=== PATIENT | female | born 1940 | race Caucasian/White ===

== ENCOUNTER 2020-05-24 09:12 | Inpatient (IN) | payer BC, OTHER ==
--- NOTE | 2020-05-24 09:32 | BHS.RME ---
Substance Use & Tx History - Substance Use History Alcohol Substance amount: 1 quart emi Frequency of use: Daily Substance route: Oral Date of Last Use: 05/23/20 Nicotine Substance amount: former smoker Physical/Psych/Mental Status - Behavior General Behavior: Increased activity (restlessness, agitation) Eye Contact: Normal - Cooperativeness Cooperativeness: Cooperative - Thinking Thought Processes: Tight, Logical, Goal Directed - Physical Health Problems Is patient presently having any pain?: No Does patient presently have any injuries (include location): No Does patient currently have a fever: No Is patient : No CIWA Nausea/Vomitin Muscle Tremors: 6 Anxiety: 3 Agitation: 4-Moderately Restless Paroxysmal Sweats: 4-Forehead w/Sweat Beads Orientation: 0-Oriented Tacttile Disturbances: 0-None Auditory Disturbances: 0-None Visual Disturbances: 0-None Headache: 2-Mild CIWA-Ar Total Score: 21
[2020-05-24 09:38] VITALS: BMI 21.9
--- NOTE | 2020-05-24 09:39 | HP ---
CIWA Score Nausea/Vomitin Muscle Tremors: 6 Anxiety: 3 Agitation: 4-Moderately Restless Paroxysmal Sweats: 4-Forehead w/Sweat Beads Orientation: 0-Oriented Tacttile Disturbances: 0-None Auditory Disturbances: 0-None Visual Disturbances: 0-None Headache: 2-Mild CIWA-Ar Total Score: 21 - Admission Criteria OASAS Guidelines: Admission for Medically Managed Detox: Requires at least one of the followin. CIWA greater than 12 2. Seizures within the past 24 hours 3. Delirium tremens within the past 24 hours 4. Hallucinations within the past 24 hours 5. Acute intervention needed for co occurring medical disorder 6. Acute intervention needed for co occurring psychiatric disorder 7. Severe withdrawal that cannot be handled at a lower level of care (continued vomiting, continued diarrhea, abnormal vital signs) requiring intravenous medication and/or fluids 8. Admitting History and Physical - Admission Chief Complaint: Ms. Magana is a 80 yo woman who presents to [facility] requesting admission for alcohol detox. History of Present Illness: Ms. Magana is a 80 yo woman who presents to [facility] requesting admission for alcohol detox. This is her first time here. PMH: HTN PSH: right ankle fracture Psych: anxiety not seen by Psych, PCP gave Lexapro SOC: lives in [place], [facility] Legal: none Substance Use History Alcohol Substance amount: 1 quart vodka Frequency of use: Daily Substance route: Oral Date of Last Use: 05/23/20 First use in her 20's, but heavily past 3 weeks. No seizures No blackouts Admits to eye investment underwriter Nicotine Substance amount: former smoker No Methadone or Suboxone. : Sylvia Magana Date: 1940 Address: [address] [place] [address] Sex: Female Rx Written Rx Dispensed Drug Quantity Days Supply Prescriber Name 05/02/2020 05/02/2020 diazepam 2 mg tablet 5 5 Evens Martinez MD 04/23/2020 04/27/2020 lorazepam 0.5 mg tablet 15 15 Evens Martinez MD 04/11/2020 04/11/2020 lorazepam 0.5 mg tablet 5 5 Evens Martinez MD Date: 1940 Address: [address], [place] [address] Sex: Female Rx Written Rx Dispensed Drug Quantity Days Supply Prescriber Name 04/16/2020 04/16/2020 lorazepam 0.5 mg tablet 10 10 Evens Martinez MD History Source: Patient Limitations to Obtaining History: No Limitations Admission ROS [facility] Allergies/Adverse Reactions: Allergies Allergy/AdvReac Type Severity Reaction Status Date / Time No Known Allergies Allergy Verified 05/24/20 09:48 Exam Limitations: No Limitations - Ebola screening Have you traveled outside of the country in the last 21 days: No Have you been sick,other than usual withdrawal symptoms: No Do you have a fever: No - Review of Systems Constitutional: Loss of Appetite, Changes in sleep (trouble falling asleep), Unintentional Wgt. Loss (lost 3 lbs) EENT: reports: Blurred Vision (glasses to read, has with her) Respiratory: reports: No Symptoms reported Cardiac: reports: No Symptoms Reported GI: reports: Nausea : reports: No Symptoms Reported Musculoskeletal: reports: Other (foot pain, hx of arthritis) Integumentary: reports: No Symptoms Reported Neuro: reports: No Symptoms reported Endocrine: reports: No Symptoms Reported Hematology: reports: No Symptoms Reported Psychiatric: reports: Anxious Patient History - Smoking Cessation Smoking history: Former smoker Have you smoked in the past 12 months: No Initiated information on smoking cessation: No Admission Physical Exam [facility] - Physical General Appearance: Yes: No Apparent Distress, Nourished, Tremorous, Anxious HEENTM: Yes: EOMI, Hearing grossly Normal, Normocephalic, Normal Voice Respiratory: Yes: Lungs Clear, No Respiratory Distress, No Accessory Muscle Use Neck: Yes: Within Normal Limits, Supple Breast: Yes: Breast Exam Deferred Cardiology: Yes: Regular Rhythm, Regular Rate Abdominal: Yes: Normal Bowel Sounds, Non Tender, Flat, Soft Genitourinary: Yes: Other (deferred) Back: Yes: Normal Inspection Musculoskeletal: Yes: Gait Steady Extremities: Yes: Normal Inspection, Non-Tender Neurological: Yes: Alert, Normal Mood/Affect, Normal Response Integumentary: Yes: Normal Color, Dry, Warm - Diagnostic (1) Alcohol dependence with withdrawal, uncomplicated Current Visit: Yes Status: Acute (2) HTN (hypertension) Current Visit: Yes Status: Acute Cleared for Admission [facility] - Detox or Rehab [facility] Level of Care: Medically Managed Detox Regimen/Protocol: Librium Breathalyzer - Breathalyzer Breathalyzer: 0 Urine Drug Screen - Test Device Lot number: [id number] Expiration date: 12/27/21 - Control Is test valid?: Yes - Results Drug screen NEGATIVE: No Urine drug screen results: BZO-Benzodiazepines Inpatient Rehab Admission - Rehab Decision to Admit Inpatient rehab admission?: No
[2020-05-24] MEDS ORDERED: MENTHOL/PHENOL 1 EACH UD MM PRN (09:56)
[2020-05-24] MEDS ORDERED: MAG HYDROX/AL HYDROX/SIMETH 30 ML UNIT-DOSE CUP PO PRN (09:56)
[2020-05-24] MEDS ORDERED: ACETAMINOPHEN 325 MG TABLET (FP) PO PRN ×2 (09:56)
[2020-05-24] MEDS ORDERED: chlordiazePOXIDE HCL 25 MG CAPSULE PO PRN (09:56)
[2020-05-24] MEDS ORDERED: ONDANSETRON *ODT* 4 MG TABLET SL PRN (09:56)
[2020-05-24] MEDS ORDERED: MAGNESIUM CITRATE 300 ML BOTTLE PO PRN (09:56)
[2020-05-24] MEDS ORDERED: BISMUTH SUBSALICYLATE 524 MG/30 ML UD PO PRN (09:56)
[2020-05-24] MEDS ORDERED: IBUPROFEN 400 MG TABLET (FP) PO PRN (09:56)
[2020-05-24] MEDS ORDERED: MAGNESIUM HYDROX 2400MG/30ML ORAL SUSPENSION 30 ML CUP PO PRN (09:56)
[2020-05-24] MEDS ORDERED: METHOCARBAMOL 500 MG TABLET PO PRN (09:56)
[2020-05-24] MEDS ORDERED: hydrOXYzine PAMOATE 25 MG CAPSULE (FP) PO SCH (10:00)
[2020-05-24] MEDS: chlordiazePOXIDE HCL 25 MG CAPSULE PO SCH ×3 (11:21→22:04)
[2020-05-24] MEDS: amLODIPine BESYLATE 10 MG TABLET (FP) PO SCH (11:22)
[2020-05-24] MEDS: PRENATAL VITAMINS W/ FOLIC ACID TABLET (FP) PO SCH (11:50)
[2020-05-24] MEDS ORDERED: hydrOXYzine PAMOATE 25 MG CAPSULE (FP) PO PRN (12:18)
--- NOTE | 2020-05-24 14:35 | CONSULT ---
[facility] Psychiatric Consult - Data Date of interview: 05/24/20 Admission source: [facility] Identifying data: Ms Magana is a 80 years old single female, retired on social security, domiciled seeking detox treatment for alcohol Substance Abuse History: Reports history of alcohol use. Refer to addiction counselor's summary for further information Medical History: Significant for hypertension and history of fracture of right ankle in 2018. Psychiatric History: This is patient's first admission to this facility. She reports no previous psychiatric contact. However, for the past 2 months, reports that she has been prescribed Lexapro 5 mg/day and Valium 2 mg/hs by her primary care provider for anxiety. Denies previous psychiatric hospitalization or suicidal attempt. At present, reports feeling very anxious and sleeping poorly Physical/Sexual Abuse/Trauma History: Denies history of abuse as a child or DV relationship as an adult Mental Status Exam - Mental Status Exam Alert and Oriented to: Time, Place, Person Cognitive Function: Fair Patient Appearance: Well Groomed Mood: Anxious Affect: Appropriate Patient Behavior: Cooperative Speech Pattern: Clear Voice Loudness: Normal Thought Process: Intact, Goal Oriented Thought Disorder: Not Present Hallucinations: Denies Suicidal Ideation: Denies Homicidal Ideation: Denies Insight/Judgement: Poor Sleep: Poorly Appetite: Poor Muscle strength/Tone: Normal Gait/Station: Normal Psychiatric Findings - Problem List ([place] 1, 2,3) (1) Anxiety disorder Current Visit: Yes Status: Chronic (2) Alcohol-induced anxiety disorder Current Visit: Yes Status: Acute (3) Alcohol-induced sleep disorder Current Visit: Yes Status: Acute (4) Alcohol dependence with withdrawal, uncomplicated Current Visit: Yes Status: Acute (5) HTN (hypertension) Current Visit: Yes Status: Chronic - Initial Treatment Plan Initial Treatment Plan: 1) Continue Lexapro 5 mg po daily. 2) Start Vistaril 50 mg po Q 4hrs prn for anxiety and Belsomra 10 mg po HS prn for insomnia. 3) Continue inpatient detoxification
[2020-05-24 14:47] LABS: HEMATOCRIT 37.8 % (32.4-45.2); HEMOGLOBIN 12.9 GM/dL (10.7-15.3); MCH 33.2 pg (25.7-33.7); MCHC 34.2 g/dl (32.0-36.0); MEAN CELL VOLUME 96.9 fl (80-96); MEAN PLT VOLUME 7.2 fl (7.5-11.1); PLATELET COUNT 371 K/MM3 (134-434); RDW 13.2 % (11.6-15.6); WHITE BLOOD COUNT 9.4 K/mm3 (4.0-10.0)
[2020-05-24 15:08] LABS: ALBUMIN 4.4 g/dl (3.4-5.0); BILIRUBIN,TOTAL 0.9 mg/dL (0.2-1); CALCIUM 9.6 mg/dL (8.5-10.1); CREATININE 0.7 mg/dL (0.55-1.3); POTASSIUM 4.1 mmol/L (3.5-5.1); TOT PROT 7.1 g/dl (6.4-8.2)
[2020-05-24] MEDS: hydrOXYzine PAMOATE 50 MG CAPSULE (FP) PO PRN (15:17)
[2020-05-24] MEDS ORDERED: MELATONIN 5 MG TABLETS PO SCH (22:00)
[2020-05-24] MEDS: SUVOREXANT 10 MG TABLET PO PRN (22:03)
[2020-05-24] MEDS: THIAMINE HCL 100 MG TABLET (FP) PO SCH (22:04)
[2020-05-25] MEDS: chlordiazePOXIDE HCL 25 MG CAPSULE PO SCH ×4 (06:40→22:08)
[2020-05-25] MEDS: PRENATAL VITAMINS W/ FOLIC ACID TABLET (FP) PO SCH (11:26)
[2020-05-25] MEDS: ESCITALOPRAM OXALATE 10 MG TABLET PO SCH (11:26)
[2020-05-25] MEDS: amLODIPine BESYLATE 10 MG TABLET (FP) PO SCH (11:26)
--- NOTE | 2020-05-25 12:28 | PN ---
S CIWA - CIWA Score Nausea/Vomitin-No Nausea/No Vomiting Muscle Tremors: 3 Anxiety: 3 Agitation: 3 Paroxysmal Sweats: 3 Orientation: 0-Oriented Tacttile Disturbances: 0-None Auditory Disturbances: 0-None Visual Disturbances: 0-None Headache: 0-None Present CIWA-Ar Total Score: 12 BHS Progress Note (SOAP) Subjective: sweats shakes anxiety Objective: 05/25/20 12:28 Vital Signs Temperature 97.9 F 05/25/20 08:57 Pulse Rate 98 H 05/25/20 08:57 Respiratory Rate 18 05/25/20 08:57 Blood Pressure 120/56 L 05/25/20 08:57 O2 Sat by Pulse Oximetry (%) 98 05/25/20 05:22 Laboratory Tests 05/24/20 05/24/20 05/24/20 09:55 09:55 09:55 WBC 9.4 RBC 3.90 Hgb 12.9 Hct 37.8 MCV 96.9 H MCH 33.2 MCHC 34.2 RDW 13.2 Plt Count 371 MPV 7.2 L Sodium 135 L Potassium 4.1 Chloride 99 Carbon Dioxide 27 Anion Gap 9 BUN 24.0 H Creatinine 0.7 Est GFR (CKD-EPI)AfAm 95.51 Est GFR (CKD-EPI)NonAf 82.41 Random Glucose 164 H Calcium 9.6 Total Bilirubin 0.9 AST 26 ALT 38 Alkaline Phosphatase 103 Total Protein 7.1 Albumin 4.4 Syphilis Serology Non-reactive COVID-19 (FIORELLA) 05/24/20 10:45 WBC RBC Hgb Hct MCV MCH MCHC RDW Plt Count MPV Sodium Potassium Chloride Carbon Dioxide Anion Gap BUN Creatinine Est GFR (CKD-EPI)AfAm Est GFR (CKD-EPI)NonAf Random Glucose Calcium Total Bilirubin AST ALT Alkaline Phosphatase Total Protein Albumin Syphilis Serology COVID-19 (FIORELLA) Not detected labs noted aaox3 ambulating no acute distress Assessment: 05/25/20 12:28 withdrawals Plan: continue detox increase fluids
[2020-05-25] MEDS: SUVOREXANT 10 MG TABLET PO PRN (22:07)
[2020-05-25] MEDS: THIAMINE HCL 100 MG TABLET (FP) PO SCH (22:08)
[2020-05-26] MEDS: chlordiazePOXIDE HCL 25 MG CAPSULE PO SCH ×4 (05:22→22:24)
[2020-05-26] MEDS: ESCITALOPRAM OXALATE 10 MG TABLET PO SCH (10:27)
[2020-05-26] MEDS: PRENATAL VITAMINS W/ FOLIC ACID TABLET (FP) PO SCH (10:28)
[2020-05-26] MEDS: amLODIPine BESYLATE 10 MG TABLET (FP) PO SCH (10:28)
--- NOTE | 2020-05-26 13:26 | PN ---
[facility] CIWA - CIWA Score Nausea/Vomitin-No Nausea/No Vomiting Muscle Tremors: 2 Anxiety: 3 Agitation: 2 Paroxysmal Sweats: 3 Orientation: 0-Oriented Tacttile Disturbances: 0-None Auditory Disturbances: 0-None Visual Disturbances: 0-None Headache: 0-None Present CIWA-Ar Total Score: 10 S Progress Note (SOAP) Subjective: Complaints of sweats, tremors, agitation and anxiety. Objective: 05/26/20 13:25 Vital Signs 05/26/20 09:21 Temperature 96.9 F L Pulse Rate 91 H Respiratory 18 Rate Blood Pressure 116/59 L O2 Sat by Pulse 100 Oximetry (%) Laboratory Last Values WBC 9.4 K/mm3 (4.0-10.0) 05/24/20 09:55 RBC 3.90 M/mm3 (3.60-5.2) 05/24/20 09:55 Hgb 12.9 GM/dL (10.7-15.3) 05/24/20 09:55 Hct 37.8 % (32.4-45.2) 05/24/20 09:55 MCV 96.9 fl (80-96) H 05/24/20 09:55 MCH 33.2 pg (25.7-33.7) 05/24/20 09:55 MCHC 34.2 g/dl (32.0-36.0) 05/24/20 09:55 RDW 13.2 % (11.6-15.6) 05/24/20 09:55 Plt Count 371 K/MM3 (134-434) 05/24/20 09:55 MPV 7.2 fl (7.5-11.1) L 05/24/20 09:55 Sodium 135 mmol/L (136-145) L 05/24/20 09:55 Potassium 4.1 mmol/L (3.5-5.1) 05/24/20 09:55 Chloride 99 mmol/L (98-107) 05/24/20 09:55 Carbon Dioxide 27 mmol/L (21-32) 05/24/20 09:55 Anion Gap 9 MMOL/L (8-16) 05/24/20 09:55 BUN 24.0 mg/dL (7-18) H 05/24/20 09:55 Creatinine 0.7 mg/dL (0.55-1.3) 05/24/20 09:55 Est GFR (CKD-EPI)AfAm 95.51 05/24/20 09:55 Est GFR (CKD-EPI)NonAf 82.41 05/24/20 09:55 Random Glucose 164 mg/dL (74-106) H 05/24/20 09:55 Calcium 9.6 mg/dL (8.5-10.1) 05/24/20 09:55 Total Bilirubin 0.9 mg/dL (0.2-1) 05/24/20 09:55 AST 26 U/L (15-37) 05/24/20 09:55 ALT 38 U/L (13-61) 05/24/20 09:55 Alkaline Phosphatase 103 U/L (45-117) 05/24/20 09:55 Total Protein 7.1 g/dl (6.4-8.2) 05/24/20 09:55 Albumin 4.4 g/dl (3.4-5.0) 05/24/20 09:55 Syphilis Serology Non-reactive (NONREACTIVE) 05/24/20 09:55 COVID-19 (FIORELLA) Not detected (Not Detected) 05/24/20 10:45 Labs noted. Assessment: 05/26/20 13:25 Alert and oriented x 3, in no acute respiratory distress. Full ROM, ambulating in unit without assistance. Skin warm to touch without any lesions. Withdrawal symptoms. Plan: Continue detox protocol.
[2020-05-26] MEDS: hydrOXYzine PAMOATE 50 MG CAPSULE (FP) PO PRN ×2 (17:30→22:24)
[2020-05-26] MEDS: THIAMINE HCL 100 MG TABLET (FP) PO SCH (22:23)
[2020-05-26] MEDS: SUVOREXANT 10 MG TABLET PO PRN (22:24)
[2020-05-27] MEDS ORDERED: chlordiazePOXIDE HCL 10 MG CAPSULE PO PRN
[2020-05-27] MEDS: chlordiazePOXIDE HCL 10 MG CAPSULE PO SCH ×4 (06:33→22:06)
[2020-05-27] MEDS: ESCITALOPRAM OXALATE 10 MG TABLET PO SCH (10:55)
[2020-05-27] MEDS: PRENATAL VITAMINS W/ FOLIC ACID TABLET (FP) PO SCH (10:55)
[2020-05-27] MEDS: amLODIPine BESYLATE 10 MG TABLET (FP) PO SCH (10:56)
--- NOTE | 2020-05-27 12:29 | PN ---
[facility] CIWA - CIWA Score Nausea/Vomitin-No Nausea/No Vomiting Muscle Tremors: 2 Anxiety: 3 Agitation: 2 Paroxysmal Sweats: 3 Orientation: 0-Oriented Tacttile Disturbances: 0-None Auditory Disturbances: 0-None Visual Disturbances: 0-None Headache: 0-None Present CIWA-Ar Total Score: 10 S Progress Note (SOAP) Subjective: C/O tremors, sweats, agitation and anxiety Objective: 05/27/20 12:28 Vital Signs 05/27/20 05/27/20 05:50 09:19 Temperature 97.3 F L 97.3 F L Pulse Rate 81 107 H Respiratory 16 16 Rate Blood Pressure 100/50 L 104/66 O2 Sat by Pulse 98 100 Oximetry (%) Laboratory Last Values WBC 9.4 K/mm3 (4.0-10.0) 05/24/20 09:55 RBC 3.90 M/mm3 (3.60-5.2) 05/24/20 09:55 Hgb 12.9 GM/dL (10.7-15.3) 05/24/20 09:55 Hct 37.8 % (32.4-45.2) 05/24/20 09:55 MCV 96.9 fl (80-96) H 05/24/20 09:55 MCH 33.2 pg (25.7-33.7) 05/24/20 09:55 MCHC 34.2 g/dl (32.0-36.0) 05/24/20 09:55 RDW 13.2 % (11.6-15.6) 05/24/20 09:55 Plt Count 371 K/MM3 (134-434) 05/24/20 09:55 MPV 7.2 fl (7.5-11.1) L 05/24/20 09:55 Sodium 135 mmol/L (136-145) L 05/24/20 09:55 Potassium 4.1 mmol/L (3.5-5.1) 05/24/20 09:55 Chloride 99 mmol/L (98-107) 05/24/20 09:55 Carbon Dioxide 27 mmol/L (21-32) 05/24/20 09:55 Anion Gap 9 MMOL/L (8-16) 05/24/20 09:55 BUN 24.0 mg/dL (7-18) H 05/24/20 09:55 Creatinine 0.7 mg/dL (0.55-1.3) 05/24/20 09:55 Est GFR (CKD-EPI)AfAm 95.51 05/24/20 09:55 Est GFR (CKD-EPI)NonAf 82.41 05/24/20 09:55 Random Glucose 164 mg/dL (74-106) H 05/24/20 09:55 Calcium 9.6 mg/dL (8.5-10.1) 05/24/20 09:55 Total Bilirubin 0.9 mg/dL (0.2-1) 05/24/20 09:55 AST 26 U/L (15-37) 05/24/20 09:55 ALT 38 U/L (13-61) 05/24/20 09:55 Alkaline Phosphatase 103 U/L (45-117) 05/24/20 09:55 Total Protein 7.1 g/dl (6.4-8.2) 05/24/20 09:55 Albumin 4.4 g/dl (3.4-5.0) 05/24/20 09:55 Syphilis Serology Non-reactive (NONREACTIVE) 05/24/20 09:55 COVID-19 (FIORELLA) Not detected (Not Detected) 05/24/20 10:45 Labs noted. Assessment: 05/27/20 12:29 Alert and oriented x 3, in no acute respiratory distress. Full ROM, ambulatory in unit without any assistance. Skin warm to touch without any lesions. Withdrawal symptoms. Plan: Continue detox protocol.
[2020-05-27] MEDS: THIAMINE HCL 100 MG TABLET (FP) PO SCH (22:06)
[2020-05-27] MEDS: hydrOXYzine PAMOATE 50 MG CAPSULE (FP) PO PRN (22:08)
[2020-05-28] MEDS ORDERED: chlordiazePOXIDE HCL 10 MG CAPSULE PO SCH (05:00)
[2020-05-28 09:25] VITALS: BP 111/53; PULSE 73; TEMP 97.1
[2020-05-28] MEDS: PRENATAL VITAMINS W/ FOLIC ACID TABLET (FP) PO SCH (09:50)
[2020-05-28] MEDS: amLODIPine BESYLATE 10 MG TABLET (FP) PO SCH (09:52)
[2020-05-28] MEDS: ESCITALOPRAM OXALATE 10 MG TABLET PO SCH (09:52)
--- NOTE | 2020-05-28 13:23 | DS ---
[facility] Detox Discharge Summary Admission Date: 05/24/20 Discharge Date: 05/28/20 - History Present History: Alcohol Dependence Additional Comments: Pt is medically cleared and discharged today. Pt completed the detox protocol. Pt is encouraged to follow-up with an outpatient CD program and also to follow- up with her pmd which she verbalized understanding. Pt is AOX3, in no acute respiratory distress, Full ROM, and ambulatory. Pertinent Past History: h/o HTN and alcohol use disorder. - Physical Exam Results Vital Signs: Vital Signs Temperature 97.1 F L 05/28/20 08:30 Pulse Rate 73 05/28/20 08:30 Respiratory Rate 16 05/28/20 08:30 Blood Pressure 111/53 L 05/28/20 08:30 O2 Sat by Pulse Oximetry (%) 96 05/28/20 05:45 Vital Signs 05/28/20 05/28/20 05:45 08:30 Temperature 98.4 F 97.1 F L Pulse Rate 78 73 Respiratory 18 16 Rate Blood Pressure 116/70 111/53 L O2 Sat by Pulse 96 Oximetry (%) Laboratory Last Values WBC 9.4 K/mm3 (4.0-10.0) 05/24/20 09:55 RBC 3.90 M/mm3 (3.60-5.2) 05/24/20 09:55 Hgb 12.9 GM/dL (10.7-15.3) 05/24/20 09:55 Hct 37.8 % (32.4-45.2) 05/24/20 09:55 MCV 96.9 fl (80-96) H 05/24/20 09:55 MCH 33.2 pg (25.7-33.7) 05/24/20 09:55 MCHC 34.2 g/dl (32.0-36.0) 05/24/20 09:55 RDW 13.2 % (11.6-15.6) 05/24/20 09:55 Plt Count 371 K/MM3 (134-434) 05/24/20 09:55 MPV 7.2 fl (7.5-11.1) L 05/24/20 09:55 Sodium 135 mmol/L (136-145) L 05/24/20 09:55 Potassium 4.1 mmol/L (3.5-5.1) 05/24/20 09:55 Chloride 99 mmol/L (98-107) 05/24/20 09:55 Carbon Dioxide 27 mmol/L (21-32) 05/24/20 09:55 Anion Gap 9 MMOL/L (8-16) 05/24/20 09:55 BUN 24.0 mg/dL (7-18) H 05/24/20 09:55 Creatinine 0.7 mg/dL (0.55-1.3) 05/24/20 09:55 Est GFR (CKD-EPI)AfAm 95.51 05/24/20 09:55 Est GFR (CKD-EPI)NonAf 82.41 05/24/20 09:55 Random Glucose 164 mg/dL (74-106) H 05/24/20 09:55 Calcium 9.6 mg/dL (8.5-10.1) 05/24/20 09:55 Total Bilirubin 0.9 mg/dL (0.2-1) 05/24/20 09:55 AST 26 U/L (15-37) 05/24/20 09:55 ALT 38 U/L (13-61) 05/24/20 09:55 Alkaline Phosphatase 103 U/L (45-117) 05/24/20 09:55 Total Protein 7.1 g/dl (6.4-8.2) 05/24/20 09:55 Albumin 4.4 g/dl (3.4-5.0) 05/24/20 09:55 Syphilis Serology Non-reactive (NONREACTIVE) 05/24/20 09:55 COVID-19 (FIORELLA) Not detected (Not Detected) 05/24/20 10:45 Labs noted. Pertinent Admission Physical Exam Findings: withdrawal symptoms. - Treatment Hospital Course: Detox Protocol Followed, Detoxed Safely, Responded well, Discharged Condition Good - Medication Discharge Medications: Ambulatory Orders Amlodipine Besylate 25 mg PO DAILY 05/24/20 Diazepam [Valium] 2 mg PO HS PRN 05/24/20 Escitalopram Oxalate [Lexapro -] 5 mg PO DAILY 05/24/20 - Diagnosis (1) Alcohol use disorder Status: Chronic (2) Alcohol dependence with withdrawal, uncomplicated Status: Acute (3) HTN (hypertension) Status: Chronic - AMA Did Patient Leave Against Medical Advice: No
[2020-05-29] MEDS ORDERED: chlordiazePOXIDE HCL 10 MG CAPSULE PO ONE (05:00)
== END 2020-05-28 10:15 | disposition home or self-care (01) | DRG 897 ==
LOC: YASAS 09:12 → Y6N 09:47
PROVIDERS: ADMIT Allergy & Immunology; ATTEND Allergy & Immunology
PROC: HZ2ZZZZ Detoxification Services for Substance Abuse Treatment (ICD-10-PCS; principal; 2020-05-24)
DX: F10.230 Alcohol dependence with withdrawal, uncomplicated (principal); F10.24 Alcohol dependence with alcohol-induced mood disorder; F10.282 Alcohol dependence with alcohol-induced sleep disorder; F41.9 Anxiety disorder, unspecified; I10 Essential (primary) hypertension; Z87.81 Personal history of (healed) traumatic fracture
CPT/HCPCS: 36415; 80053; 85027; 86780; U0003